=== PATIENT | male | born 1970 | race Caucasian/White ===

== ENCOUNTER 2021-12-09 13:35 | Outpatient (CLI) | payer OTHER | END 2021-12-09 13:36 | disposition home or self-care (01) | LOC: CSHCT 13:35 | PROVIDERS: ATTEND Urology | DX: N42.0 Calculus of prostate (principal) | CPT/HCPCS: 72192 ==

== ENCOUNTER 2022-10-06 13:30 | Outpatient (CLI) | payer BC | END 2022-10-06 13:31 | disposition home or self-care (01) | LOC: CSHULT 13:30 | PROVIDERS: ATTEND Family Medicine | DX: R79.89 Other specified abnormal findings of blood chemistry (principal); Z85.51 Personal history of malignant neoplasm of bladder | CPT/HCPCS: 76770 ==